=== PATIENT | male | born 1950 | race Caucasian/White ===

== ENCOUNTER 2017-04-03 08:50 | Inpatient (IN) | payer SELFPAY ==
--- NOTE | 2017-04-03 09:23 | ER Document Report ---
HPI - HPI Patient complains to provider of: hand/wrist pain Onset: Yesterday Onset/Duration: Worse Quality of pain: Sharp Pain Level: 4 Context: Patient complains of right wrist and hand pain that started yesterday. Patient denies any injury. 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 Patient is right- hand dominant. Patient denies any fever. Patient complains of pain with attempt to extend his fingers of his right hand. Patient states he is unable to make a closed fist due to tenderness. Associated Symptoms: Other - Right hand and wrist pain Exacerbated by: Movement Relieved by: Denies Similar symptoms previously: No Recently seen / treated by doctor: No - ROS ROS below otherwise negative: Yes Systems Reviewed and Negative: Yes All other systems reviewed and negative - CONSTITUTIONAL Constitutional: DENIES: Fever - MUSCULOSKELETAL Musculoskeletal: REPORTS: Extremity pain - DERM Skin Color: Erythema Skin Problems: None Past Medical History - General Information source: Patient - Social History Smoking Status: Current Every Day Smoker Frequency of alcohol use: Occasional Drug Abuse: None 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 Denies: Hx Open Heart Surgery, Hx Pacemaker - Immunizations Hx Diphtheria, Pertussis, Tetanus Vaccination: Yes Vertical Provider Document - CONSTITUTIONAL Agree With Documented VS: Yes Exam Limitations: No Limitations General Appearance: WD/WN, No Apparent Distress - INFECTION CONTROL TRAVEL OUTSIDE OF THE [place] IN LAST 30 DAYS: No - HEENT HEENT: Atraumatic, Normocephalic - NECK Neck: Normal Inspection - RESPIRATORY Respiratory: Breath Sounds Normal, No Respiratory Distress O2 Sat by Pulse Oximetry: 97 - CARDIOVASCULAR Cardiovascular: Regular Rate, Regular Rhythm, No Murmur Pulses: Normal: Radial - BACK Back: Normal Inspection - MUSCULOSKELETAL/EXTREMETIES Musculoskeletal/Extremeties: MAEW, Tender - Patient with palmar right hand pain to thenar crease that extends distally to the base of his 2 through 5 digits and proximally to his elbow area. Erythema overlying volar aspect of right wrist Notes: Passive extension of fingers 2 through 5 markedly increases his pain along the flexor tendon sheathes, no overt swelling appreciated - NEURO Level of Consciousness: Awake, Alert, Appropriate Motor/Sensory: negative: No Sensory Deficit Notes: Patient unable to actively extend his fingers, patient unable to fully flex his fingers into a fist - DERM Integumentary: Warm, Dry. negative: Abscess Notes: Patient with erythema to the volar aspect of right wrist Course - Re-evaluation Re-evalutation: 04/03/17 09:[address] Tapia who agrees to come to room for evaluation. 04/03/17 09:[address] morris and discussed patient presentation, recommends obtaining lab work including CBC, sed rate and CRP, also recommends obtaining an MRI of the hand and wrist area and calling him with results. Does not recommend any antibiotics at this time. 04/03/17 13:[address] Morris with results of MRI as well as lab test, Dr. morris will be by to evaluate patient 04/03/17 13:42 Dr Morris to bedside, advises unasyn iv and consulting with hospitalist for admission. 04/03/17 14:[address] Vargas who agrees to accept patient to medical floor - Vital Signs Vital signs: Temp Pulse Resp BP Pulse Ox 97.7 F 87 18 114/80 97 04/03/17 08:51 04/03/17 08:51 04/03/17 08:51 04/03/17 08:51 04/03/17 08:51 - Laboratory Result Diagrams: 04/03/17 10:15 04/03/17 10:15 Laboratory results interpreted by me: 04/03/17 13:33 Labs- Entire Visit 04/03/17 04/03/17 10:15 10:15 WBC 11.7 H RBC 4.80 Hgb 15.7 Hct 44.5 MCV 93 MCH 32.7 MCHC 35.3 RDW 14.1 H Plt Count 196 Seg Neutrophils % 70.8 Lymphocytes % 19.6 Monocytes % 8.4 Eosinophils % 0.5 Basophils % 0.7 Absolute Neutrophils 8.3 H Absolute Lymphocytes 2.3 Absolute Monocytes 1.0 Absolute Eosinophils 0.1 Absolute Basophils 0.1 ESR 19 Sodium 141.6 Potassium 4.3 Chloride 107 Carbon Dioxide 24 Anion Gap 11 BUN 18 Creatinine 1.06 Est GFR ( Amer) > 60 Est GFR (Non-Af Amer) > 60 Glucose 142 H Calcium 9.9 C-Reactive Protein 10.5 H - Diagnostic Test Radiology reviewed: Reports reviewed Discharge - Discharge Clinical Impression: Right common flexor tendon sheath inflam, Right wrist cellulitis Condition: Stable Disposition: ADMITTED INPATIENT Admitting Provider: Hospitalist Unit Admitted: Medical Floor Referrals: DOROTHEA LEMUS MD [Primary Care Provider] - Follow up as needed
[2017-04-03] MEDS ORDERED: MORPHINE SULFATE 10 MG/ML INJ IV ONE ×2 (09:33→14:41)
[2017-04-03 10:34] LABS: ABSOLUTE BASOPHILS # (AUTO) 0.1 10^3/uL (0.0-0.2); ABSOLUTE EOSINOPHILS # (AUTO) 0.1 10^3/uL (0.0-0.6); ABSOLUTE LYMPHOCYTES (AUTO) 2.3 10^3/uL (0.5-4.7); ABSOLUTE NEUT (AUTO) 8.3 10^3/uL (1.7-8.2); BASOPHILS % (AUTO) 0.7 % (0-2); EOSINOPHILS % (AUTO) 0.5 % (0-6); HEMATOCRIT 44.5 % (37.9-51.0); HEMOGLOBIN 15.7 g/dL (13.5-17.0); HGB HCT DIFFERENCE 2.6; LYMPHOCYTES % (AUTO) 19.6 % (13-45); MEAN CORPUSCULAR HEMOGLOBIN 32.7 pg (27.0-33.4); MEAN CORPUSCULAR HGB CONC 35.3 g/dL (32.0-36.0); MEAN CORPUSCULAR VOLUME 93 fl (80-97); MONOCYTES % (AUTO) 8.4 % (3-13); RED CELL DISTRIBUTION WIDTH 14.1 % (11.5-14.0); SEGMENTED NEUTROPHILS % (AUTO) 70.8 % (42-78); WHITE BLOOD COUNT 11.7 10^3/uL (4.0-10.5)
[2017-04-03 10:58] LABS: ANION GAP 11 (5-19); BLOOD UREA NITROGEN 18 mg/dL (7-20); C-REACTIVE PROTEIN 10.5 mg/L (<10.0); CALCIUM 9.9 mg/dL (8.4-10.2); CARBON DIOXIDE 24 mmol/L (22-30); CHLORIDE 107 mmol/L (98-107); CREATININE RESULT 1.06 mg/dL (0.52-1.25); GLUCOSE 142 mg/dL (75-110); POTASSIUM 4.3 mmol/L (3.6-5.0); SODIUM 141.6 mmol/L (137-145)
[2017-04-03 11:19] LABS: ERYTHROCYTE SEDIMENTATION RATE 19 mm/hr (0-20)
--- NOTE | 2017-04-03 13:27 | RADIOLOGY REPORT (SQ) ---
EXAM DESCRIPTION: MRI RT UPPER EXTREMITY WITHOUT COMPLETED DATE/TIME: 04/03/2017 1:03 pm REASON FOR STUDY: r hand/wrist/forearm pain, reddness to volar wrist COMPARISON: None. TECHNIQUE: Multiplanar imaging of the right forearm, wrist, and majority of hand to include fat and fluid sensitive sequences. LIMITATIONS: Motion. FINDINGS: There is fluid in the flexor tendon sheath of the visualized portion of the 5th digit. At the level of the metacarpals and more proximal there is fluid in the common flexor tendon sheath ext ending to the level of the distal forearm. Regional marrow signal is normal. IMPRESSION: Inflammation in the common flexor tendon sheath extending into the 5th digit consistent with inflammatory or infectious process. No evidence of osteomyelitis. TECHNICAL DOCUMENTATION: JOB ID: [id number] [employer]- All Rights Reserved
[2017-04-03] MEDS ORDERED: AMPICILLIN SOD/SULBACTAM 3 GM VIAL IV ONE (13:41)
[2017-04-03] MEDS ORDERED: ACETAMINOPHEN 325 MG TABLET PO PRN (14:42)
[2017-04-03] MEDS ORDERED: ONDANSETRON 4 MG TAB.RAPDIS PO PRN (14:42)
[2017-04-03] MEDS ORDERED: INSULIN LISPRO 100 UNIT/ML 3 ML VIAL SUBCUT PRN (14:48)
[2017-04-03] MEDS ORDERED: DEXTROSE 50%-WATER 25 GM/50 ML DISP.SYRIN IV PRN ×2 (14:48)
[2017-04-03] MEDS ORDERED: GLUCAGON,HUMAN RECOMB 1 MG INJ IM PRN (14:48)
[2017-04-03] MEDS ORDERED: DEXTROSE 40% GEL 15 GM TUBE PO PRN ×2 (14:48)
[2017-04-03] MEDS ORDERED: ALPRAZOLAM 0.25 MG TABLET PO PRN ×2 (14:49→19:46)
--- NOTE | 2017-04-03 14:58 | PDOC H&P ---
History of Present Illness Admission Date/PCP: 04/03/17 14:40 DOROTHEA LEMUS, Patient complains of: Pain in the right wrist. History of Present Illness: ASHISH SHRESTHA is a 66 year old male with a history of diabetes well controlled with metformin who presents with 1 day history of right wrist pain and swelling. The patient has noticed swelling over the palmar aspect of his right wrist. There is some mild tenderness when he tries to flex his wrist. The patient denies any fevers or chills however. He denies any recent trauma. He denies any tick exposure. He does not work in garden and denies having any fevers or chills. The patient had an MRI and evaluation of this in the emergency room shows some inflammation in the common tendon sheath. The patient however has already been examined by orthopedic surgery and they did not feel that he has a tendon sheath infection. The patient denies any animal bites. Denies any travel outside of [facility]. He is admitted for treatment of cellulitis. Past Medical History Cardiac Medical History: Reports: Atrial Fibrillation, Hypertension - LISINOPRIL , AMLODIPINE Denies: Myocardial Infarction Pulmonary Medical History: Denies: Asthma Neurological Medical History: Reports: None Endocrine Medical History: Reports: Diabetes Mellitus Type 2 Renal/ Medical History: Reports: None Malignancy Medical History: Reports: None GI Medical History: Reports: None Denies: Hepatitis, Hiatal Hernia Musculoskeltal Medical History: Reports: None Skin Medical History: Reports: Other - Chronic rash on his legs. Psychiatric Medical History: Denies: Depression Hematology: Denies: Anemia, Sickle Cell Disease Infectious Medical History: Reports: None Past Surgical History Past Surgical History: Reports: Orthopedic Surgery Denies: Pacemaker Social History Information Source: Patient Lives with: Spouse/Significant other Smoking Status: Current Every Day Smoker Frequency of Alcohol Use: None Hx Recreational Drug Use: No Hx Prescription Drug Abuse: No - Advance Directive Resuscitation Status: Full Code Family History Family History: CAD Family History: Mother has pancreatic cancer and still alive. Parental Family History Reviewed: Yes Children Family History Reviewed: No Sibling(s) Family History Reviewed.: No Medication/Allergy Home Medications: Albuterol Sulfate [Proair HFA] 1 - 2 puff IH Q4 PRN 08/23/14 Alprazolam [Xanax 0.25 mg Tablet] 0.25 mg PO Q6HP PRN 08/23/14 Aspirin [Aspirin 325 mg Tablet] 325 mg PO DAILY 08/23/14 Atenolol [Tenormin 100 mg Tablet] 100 mg PO DAILY #7 tablet 08/23/14 Atenolol [Tenormin 50 mg Tablet] 50 mg PO DAILY 08/23/14 Lisinopril 10 mg PO DAILY 08/23/14 Metformin HCl [Glumetza ER 500 mg Tablet] 500 mg PO QHS 08/23/14 Oxycodone HCl 5 mg PO PRN PRN 08/23/14 Allergies/Adverse Reactions: No Known Allergies Allergy (Verified 04/03/17 09:05) Review of Systems Constitutional: ABSENT: chills, fever(s), headache(s), weight gain, weight loss Eyes: ABSENT: visual disturbances Ears: ABSENT: hearing changes Cardiovascular: ABSENT: chest pain, dyspnea on exertion, edema, orthropnea, palpitations Respiratory: ABSENT: cough, hemoptysis Gastrointestinal: ABSENT: abdominal pain, constipation, diarrhea, hematemesis, hematochezia, nausea, vomiting Genitourinary: ABSENT: dysuria, hematuria Musculoskeletal: ABSENT: joint swelling Integumentary: PRESENT: as per HPI Neurological: ABSENT: abnormal gait, abnormal speech, confusion, dizziness, focal weakness, syncope Psychiatric: ABSENT: anxiety, depression, homidical ideation, suicidal ideation Endocrine: ABSENT: cold intolerance, heat intolerance, polydipsia, polyuria Hematologic/Lymphatic: ABSENT: easy bleeding, easy bruising Physical Exam Vital Signs: Temp Pulse Resp BP Pulse Ox 97.7 F 87 18 114/80 97 04/03/17 08:51 04/03/17 08:51 04/03/17 08:51 04/03/17 08:51 04/03/17 14:18 General appearance: PRESENT: no acute distress, well-developed, well-nourished Head exam: PRESENT: atraumatic, normocephalic Eye exam: PRESENT: conjunctiva pink, EOMI, PERRLA. ABSENT: scleral icterus Ear exam: PRESENT: normal external ear exam Mouth exam: PRESENT: moist, tongue midline Neck exam: ABSENT: carotid bruit, JVD, lymphadenopathy, thyromegaly Respiratory exam: PRESENT: clear to auscultation stef. ABSENT: rales, rhonchi, wheezes Cardiovascular exam: PRESENT: RRR. ABSENT: diastolic murmur, rubs, systolic murmur Pulses: PRESENT: normal dorsalis pedis pul Vascular exam: PRESENT: normal capillary refill GI/Abdominal exam: PRESENT: normal bowel sounds, soft. ABSENT: distended, guarding, mass, organolmegaly, rebound, tenderness Rectal exam: PRESENT: deferred Extremities exam: PRESENT: other - Pain with flexion of the right wrist.. ABSENT: calf tenderness, clubbing, pedal edema Neurological exam: PRESENT: alert, awake, oriented to person, oriented to place , oriented to time, oriented to situation, CN II-XII grossly intact. ABSENT: motor sensory deficit Psychiatric exam: PRESENT: appropriate affect Skin exam: PRESENT: dry, erythema - Erythematous rash on the palmar side of the right wrist. Patient is able to flex his fingers without pain., intact, warm. ABSENT: cyanosis, rash Results Impressions: Upper Extremity MRI 04/03/17 09:31 IMPRESSION: Inflammation in the common flexor tendon sheath extending into the 5th digit consistent with inflammatory or infectious process. No evidence of osteomyelitis. Assessment & Plan - Diagnosis (1) Cellulitis Is this a current diagnosis for this admission?: Yes Plan: Patient has cellulitis of the right wrist. Patient has been given Unasyn in the emergency room and we will continue with that. He has been evaluated by orthopedic surgery already and does not appear to have an active infection of the tendon sheath. Blood cultures have been obtained. (2) Hypertension Is this a current diagnosis for this admission?: Yes Plan: We will continue with the atenolol. (3) Diabetes mellitus Is this a current diagnosis for this admission?: Yes Plan: The patient is on metformin as an outpatient. We will hold that and cover with sliding scale insulin. (4) Atrial fibrillation Is this a current diagnosis for this admission?: Yes Plan: Continue with atenolol. Patient is in a normal rhythm today. He is not on anticoagulation. (5) Anxiety Is this a current diagnosis for this admission?: Yes Plan: Patient is on Celexa and Xanax for this. - Time Time Spent: 50 to 70 Minutes - Plan Summary Plan Summary: We will admit as an observation. I anticipate this require less than a 2 midnight hospital stay.
[2017-04-03] MEDS: OXYCODONE-ACETAMINOPHEN 5-325 MG TABLET PO PRN (19:17)
[2017-04-03] MEDS ORDERED: KETOROLAC TROMETHAMINE INJ/PF 30 MG/1 ML SDV IV PRN (19:47)
[2017-04-03] MEDS: ATORVASTATIN CALCIUM 10 MG TABLET PO SCH (21:11)
[2017-04-03] MEDS: METFORMIN HCL 500 MG TABLET PO SCH (21:11)
[2017-04-03] MEDS: AMPICILLIN SODIUM/SULBACTAM NA 3 GM in NORMAL SALINE 100 ML IV SCH (21:11)
[2017-04-04] MEDS: AMPICILLIN SODIUM/SULBACTAM NA 3 GM in NORMAL SALINE 100 ML IV SCH ×4 (02:18→20:12)
[2017-04-04] MEDS: OXYCODONE-ACETAMINOPHEN 5-325 MG TABLET PO PRN ×2 (02:18→08:21)
[2017-04-04 04:44] LABS: HEMATOCRIT 40.9 % (37.9-51.0); HEMOGLOBIN 14.2 g/dL (13.5-17.0); HGB HCT DIFFERENCE 1.7; MEAN CORPUSCULAR HEMOGLOBIN 32.7 pg (27.0-33.4); MEAN CORPUSCULAR HGB CONC 34.7 g/dL (32.0-36.0); MEAN CORPUSCULAR VOLUME 94 fl (80-97); RED BLOOD COUNT 4.34 10^6/uL (4.35-5.55); RED CELL DISTRIBUTION WIDTH 13.8 % (11.5-14.0); WHITE BLOOD COUNT 8.1 10^3/uL (4.0-10.5)
[2017-04-04 05:09] LABS: ANION GAP 8 (5-19); BLOOD UREA NITROGEN 19 mg/dL (7-20); CALCIUM 8.8 mg/dL (8.4-10.2); CARBON DIOXIDE 26 mmol/L (22-30); CHLORIDE 106 mmol/L (98-107); CREATININE RESULT 0.99 mg/dL (0.52-1.25); GLUCOSE 121 mg/dL (75-110); POTASSIUM 4.3 mmol/L (3.6-5.0)
[2017-04-04] MEDS ORDERED: IBUPROFEN 800 MG TABLET PO ONE (09:30)
[2017-04-04] MEDS: CITALOPRAM HYDROBROMIDE 20 MG TABLET PO SCH (09:42)
[2017-04-04] MEDS: ASPIRIN 325 MG TABLET, ENT COATED PO SCH (09:43)
[2017-04-04] MEDS: LISINOPRIL 10 MG TABLET PO SCH (09:43)
[2017-04-04] MEDS: ATENOLOL 50 MG TABLET PO SCH (09:45)
[2017-04-04] MEDS ORDERED: ASPIRIN 325 MG TABLET PO SCH (10:00)
--- NOTE | 2017-04-04 10:17 | PDOC PROGRESS REPORT ---
Subjective Progress Note for:: 04/04/17 Subjective:: Reports the right wrist pain is less today. Physical Exam Vital Signs: Temp Pulse Resp BP Pulse Ox 97.3 F 78 18 116/76 99 04/04/17 07:07 04/04/17 07:07 04/04/17 07:07 04/04/17 07:07 04/04/17 07:07 Intake & Output 04/03/17 04/04/17 04/05/17 06:59 06:59 06:59 Intake Total 670 Balance 670 Weight 100.8 kg General appearance: PRESENT: no acute distress Eye exam: PRESENT: conjunctiva pink. ABSENT: scleral icterus Mouth exam: PRESENT: moist, tongue midline Neck exam: ABSENT: JVD Respiratory exam: PRESENT: clear to auscultation stef. ABSENT: rales, rhonchi, wheezes Cardiovascular exam: PRESENT: RRR. ABSENT: diastolic murmur, rubs, systolic murmur GI/Abdominal exam: PRESENT: normal bowel sounds, soft. ABSENT: distended, guarding, mass, organolmegaly, rebound, tenderness Extremities exam: ABSENT: calf tenderness, clubbing, pedal edema Neurological exam: PRESENT: alert, awake, oriented to person, oriented to place , oriented to time, oriented to situation, CN II-XII grossly intact. ABSENT: motor sensory deficit Psychiatric exam: PRESENT: appropriate affect Skin exam: PRESENT: other - Erythema of the right wrist on the palmar aspect is improved. Patient has more movement of his finger flexion today. Results Laboratory Results: 04/04/17 04:10 04/04/17 04:10 04/04/17 04/04/17 04:10 04:10 WBC 8.1 RBC 4.34 L Hgb 14.2 Hct 40.9 MCV 94 MCH 32.7 MCHC 34.7 RDW 13.8 Plt Count 162 Sodium 140.0 Potassium 4.3 Chloride 106 Carbon Dioxide 26 Anion Gap 8 BUN 19 Creatinine 0.99 Est GFR ( Amer) > 60 Est GFR (Non-Af Amer) > 60 Glucose 121 H Calcium 8.8 Impressions: Upper Extremity MRI 04/03/17 09:31 IMPRESSION: Inflammation in the common flexor tendon sheath extending into the 5th digit consistent with inflammatory or infectious process. No evidence of osteomyelitis. Assessment & Plan - Diagnosis (1) Cellulitis Is this a current diagnosis for this admission?: Yes Plan: Patient has cellulitis of the right wrist. He has shown improvement. Needs 1 more day of IV antibiotics prior to discharge to home. He has been evaluated by orthopedic surgery already and does not appear to have an active infection of the tendon sheath. Blood cultures have been obtained. (2) Hypertension Is this a current diagnosis for this admission?: Yes Plan: We will continue with the atenolol. (3) Diabetes mellitus Is this a current diagnosis for this admission?: Yes Plan: The patient is on metformin as an outpatient. We will hold that and cover with sliding scale insulin. (4) Atrial fibrillation Is this a current diagnosis for this admission?: Yes Plan: Continue with atenolol. Patient is in a normal rhythm today. He is not on anticoagulation. (5) Anxiety Is this a current diagnosis for this admission?: Yes Plan: Patient is on Celexa and Xanax for this. - Time Time Spent with patient: 25-34 minutes - Inpatient Certification Medical Necessity: Need Close Monitoring Due to Risk of Patient Decompensation, Need for IV Antibiotics
[2017-04-04] MEDS: IBUPROFEN 800 MG TABLET PO SCH ×2 (12:22→17:35)
[2017-04-04] MEDS ORDERED: INFLUENZA ADLT QUAD (36MOS+) 2017-18 VAC 0.5 ML SYR IM PRN (16:27)
--- NOTE | 2017-04-04 19:32 | PDOC CONSULTATION ---
Consultation Consult Date: 04/03/17 Consult reason:: Rule out flexor tenosynovitis of the right hand. History of Present Illness Admission Date/PCP: 04/04/17 10:14 DOROTHEA LEMUS, Patient complains of: Right hand redness, swelling, pain with motion of the digits History of Present Illness: 66-year-old diabetic smoker with 48 hour history of erythema of the volar aspect of the wrist of his right hand with significant pain with extension and flexion of all 5 digits especially the ring finger. Denies any numbness or tingling or paresthesias. Denies any abrasions or cuts except for small abrasion of the digit. Denies any previous injuries or any previous infections. Denies any fevers or chills. Denies nausea vomiting. Past Medical History Cardiac Medical History: Reports: Atrial Fibrillation, Hypertension - LISINOPRIL , AMLODIPINE Denies: Myocardial Infarction Pulmonary Medical History: Denies: Asthma Neurological Medical History: Reports: None Denies: Seizures Endocrine Medical History: Reports: Diabetes Mellitus Type 2 Renal/ Medical History: Reports: None Malignancy Medical History: Reports: None GI Medical History: Reports: None Denies: Hepatitis, Hiatal Hernia Musculoskeltal Medical History: Reports: None Skin Medical History: Reports: Other - Chronic rash on his legs. Psychiatric Medical History: Denies: Depression Hematology: Denies: Anemia, Sickle Cell Disease Infectious Medical History: Reports: None Past Surgical History Past Surgical History: Reports: Orthopedic Surgery Denies: Pacemaker Social History Lives with: Spouse/Significant other Smoking Status: Current Every Day Smoker Cigarettes Packs Per Day: 0.5 Cigars Per Day: 0 Pipes Per Day: 0 Number of Years Smokin Last Time Smoked: 04/03/2017 Frequency of Alcohol Use: Social Hx Recreational Drug Use: No Drugs: None Hx Prescription Drug Abuse: No - Advance Directive Resuscitation Status: Full Code Family History Family History: CAD Parental Family History Reviewed: No Children Family History Reviewed: No Sibling(s) Family History Reviewed.: No Medication/Allergy Home Medications: Albuterol Sulfate [Proair HFA] 1 - 2 puff IH Q4 PRN 04/03/17 Alprazolam [Xanax 0.25 mg Tablet] 0.25 mg PO Q8 04/03/17 Aspirin [Ecotrin 325 mg EC Tablet] 325 mg PO DAILY 04/03/17 Atenolol [Tenormin 100 mg Tablet] 100 mg PO DAILY 04/03/17 Citalopram Hydrobromide [Celexa 40 mg Tablet] 40 mg PO DAILY 04/03/17 Lisinopril [Prinivil 10 mg Tablet] 10 mg PO DAILY 04/03/17 Lovastatin [Altoprev] 20 mg PO DAILY 04/03/17 Metformin HCl [Metformin HCl ER] 1 tab PO QHS 04/03/17 Naproxen Sodium [Aleve] 220 mg PO PRN PRN 04/03/17 Allergies/Adverse Reactions: No Known Allergies Allergy (Verified 04/03/17 09:05) Review of Systems All systems: reviewed and no additional remarkable complaints except as stated Constitutional: PRESENT: as per HPI Eyes: ABSENT: visual disturbances Ears: ABSENT: hearing changes Nose, Mouth, and Throat: ABSENT: headache(s), mouth pain, sore throat Cardiovascular: ABSENT: chest pain, orthropnea, palpitations Respiratory: ABSENT: dyspnea, hemoptysis Gastrointestinal: ABSENT: nausea, vomiting Genitourinary: ABSENT: dysuria, hematuria Musculoskeletal: PRESENT: as per HPI Integumentary: PRESENT: as per HPI, erythema Neurological: ABSENT: numbness, paresthesias, weakness Psychiatric: ABSENT: anxiety, depression Endocrine: ABSENT: cold intolerance, heat intolerance Hematologic/Lymphatic: ABSENT: easy bruising, lymphadenopathy Physical Exam Vital Signs: Temp Pulse Resp BP Pulse Ox 36.3 C 62 18 143/84 H 100 04/04/17 15:15 04/04/17 15:15 04/04/17 15:15 04/04/17 15:15 04/04/17 15:15 Intake & Output 04/03/17 04/04/17 04/05/17 06:59 06:59 06:59 Intake Total 320 Balance 320 General appearance: PRESENT: no acute distress Head exam: PRESENT: atraumatic Eye exam: PRESENT: EOMI, other - symmetric pupils. ABSENT: nystagmus Ear exam: PRESENT: normal external ear exam. ABSENT: bleeding Mouth exam: PRESENT: dry mucosa, neck supple Neck exam: ABSENT: lymphadenopathy, tenderness, thyromegaly Respiratory exam: PRESENT: accessory muscle use, symmetrical, unlabored. ABSENT : tachypnea Cardiovascular exam: PRESENT: RRR Pulses: PRESENT: normal radial pulses Vascular exam: PRESENT: normal capillary refill Front of Hands Image: 1 - About a 2 cm round erythema at the wrist and proximal forearm. There is no swelling or erythema of the digits. Patient can extend and flex digits but with significant pain with extreme flexion in the ring finger worse than the other 4 digits excluding thumb. All digits have no swelling with good capillary refill and good sensation to light touch. Neurological exam: PRESENT: alert, awake, oriented to person, oriented to place , oriented to time, oriented to situation Psychiatric exam: PRESENT: appropriate affect, normal mood. ABSENT: agitated, anxious Skin exam: PRESENT: erythema - On the volar aspect of the wrist. No erythema or swelling of the digits of the right hand. Results Impressions: Upper Extremity MRI 04/03/17 09:31 IMPRESSION: Inflammation in the common flexor tendon sheath extending into the 5th digit consistent with inflammatory or infectious process. No evidence of osteomyelitis. Status: Image reviewed by me Assessment & Plan - Diagnosis (1) Cellulitis Qualifiers: Site of cellulitis: extremity Site of cellulitis of extremity: upper extremity Laterality: right Qualified Code(s): L03.113 - Cellulitis of right upper limb Is this a current diagnosis for this admission?: Yes Plan: 66-year-old diabetic smoker with I believe erythema and cellulitis involving the flexor sheath. MRI of the extremity shows no pus or fluid that requires decompression in the right wrist and fingers. I believe the patient would be better off receiving 48 hours of IV antibiotics. I will reassess the patient and if patient does not improve would consider doing release of the flexor sheath of his right palm. With a borderline sed rate and CRP I believe the patient will respond with IV antibiotics.
--- NOTE | 2017-04-04 19:35 | PDOC PROGRESS REPORT ---
Subjective Progress Note for:: 04/04/17 Subjective:: Shunt able to flex and extend digits significantly better with improvement in pain. Patient states that erythema has also resolved. She is overnight. Physical Exam Vital Signs: Temp Pulse Resp BP Pulse Ox 36.3 C 62 18 143/84 H 100 04/04/17 15:15 04/04/17 15:15 04/04/17 15:15 04/04/17 15:15 04/04/17 15:15 Intake & Output 04/03/17 04/04/17 04/05/17 06:59 06:59 06:59 Intake Total 320 Balance 320 Front of Hands Image: 1 - Erythema on the volar aspect of the forearm and wrist has resolved. Tenderness has improved significantly. Able to almost close a fist which she cannot do yesterday. He is neurovascular intact distally. Results Impressions: Upper Extremity MRI 04/03/17 09:31 IMPRESSION: Inflammation in the common flexor tendon sheath extending into the 5th digit consistent with inflammatory or infectious process. No evidence of osteomyelitis. Status: Image reviewed by me Assessment & Plan - Diagnosis (1) Cellulitis Qualifiers: Site of cellulitis: extremity Site of cellulitis of extremity: upper extremity Laterality: right Qualified Code(s): L03.113 - Cellulitis of right upper limb Is this a current diagnosis for this admission?: Yes - Plan Summary Plan Summary: 66-year-old gentleman who has significantly improved with IV antibiotics. I agree with the hospitalist that the patient can probably be discharged in the morning on p.o. antibiotics. Surgical intervention required. Patient to follow-up if symptoms return or worsen again.
[2017-04-04] MEDS: METFORMIN HCL 500 MG TABLET PO SCH (22:44)
[2017-04-04] MEDS: ATORVASTATIN CALCIUM 10 MG TABLET PO SCH (22:44)
[2017-04-05] MEDS: AMPICILLIN SODIUM/SULBACTAM NA 3 GM in NORMAL SALINE 100 ML IV SCH ×2 (03:28→08:34)
[2017-04-05 05:30] LABS: ABSOLUTE BASOPHILS # (AUTO) 0.1 10^3/uL (0.0-0.2); ABSOLUTE EOSINOPHILS # (AUTO) 0.2 10^3/uL (0.0-0.6); ABSOLUTE LYMPHOCYTES (AUTO) 2.3 10^3/uL (0.5-4.7); ABSOLUTE MONOCYTES (AUTO) 0.8 10^3/uL (0.1-1.4); ABSOLUTE NEUT (AUTO) 3.6 10^3/uL (1.7-8.2); EOSINOPHILS % (AUTO) 2.2 % (0-6); HEMATOCRIT 40.8 % (37.9-51.0); HEMOGLOBIN 14.1 g/dL (13.5-17.0); HGB HCT DIFFERENCE 1.5; MEAN CORPUSCULAR HEMOGLOBIN 32.8 pg (27.0-33.4); MEAN CORPUSCULAR HGB CONC 34.6 g/dL (32.0-36.0); MEAN CORPUSCULAR VOLUME 95 fl (80-97); MONOCYTES % (AUTO) 11.1 % (3-13); RED BLOOD COUNT 4.31 10^6/uL (4.35-5.55); RED CELL DISTRIBUTION WIDTH 14.1 % (11.5-14.0); SEGMENTED NEUTROPHILS % (AUTO) 52.7 % (42-78); WHITE BLOOD COUNT 6.9 10^3/uL (4.0-10.5)
[2017-04-05] MEDS: IBUPROFEN 800 MG TABLET PO SCH (08:29)
[2017-04-05 09:41] VITALS: BP 139/84
[2017-04-05] MEDS: LISINOPRIL 10 MG TABLET PO SCH (09:57)
[2017-04-05] MEDS: ASPIRIN 325 MG TABLET, ENT COATED PO SCH (09:58)
[2017-04-05] MEDS: ATENOLOL 50 MG TABLET PO SCH (09:58)
[2017-04-05] MEDS: CITALOPRAM HYDROBROMIDE 20 MG TABLET PO SCH (09:59)
--- NOTE | 2017-04-05 12:51 | PDOC DISCHARGE SUMMARY ---
General - Admit/Disc Date/PCP Admission Date/Primary Care Provider: 04/04/17 10:14 DOROTHEA LEMUS, Discharge Date: 04/05/17 - Discharge Diagnosis (1) Cellulitis Is this a current diagnosis for this admission?: Yes Summary: Negative cultures. Being sent home on Augmentin. (2) Hypertension Is this a current diagnosis for this admission?: Yes (3) Diabetes mellitus Is this a current diagnosis for this admission?: Yes (4) Atrial fibrillation Is this a current diagnosis for this admission?: Yes (5) Anxiety Is this a current diagnosis for this admission?: Yes - Additional Information Resuscitation Status: Full Code Discharge Diet: Diabetic Discharge Activity: Activity As Tolerated Home Medications: Albuterol Sulfate [Proair HFA] 1 - 2 puff IH Q4 PRN 04/03/17 Alprazolam [Xanax 0.25 mg Tablet] 0.25 mg PO Q8 04/03/17 Aspirin [Ecotrin 325 mg EC Tablet] 325 mg PO DAILY 04/03/17 Atenolol [Tenormin 100 mg Tablet] 100 mg PO DAILY 04/03/17 Citalopram Hydrobromide [Celexa 40 mg Tablet] 40 mg PO DAILY 04/03/17 Lisinopril [Prinivil 10 mg Tablet] 10 mg PO DAILY 04/03/17 Lovastatin [Altoprev] 20 mg PO DAILY 04/03/17 Metformin HCl [Metformin HCl ER] 1 tab PO QHS 04/03/17 Naproxen Sodium [Aleve] 220 mg PO PRN PRN 04/03/17 Amox Tr/Potassium Clavulanate [Augmentin 875-125 mg Tablet] 1 tab PO BID #16 tablet 04/05/17 Flu Vacc [id number] 36Mos Up/Pf [Fluzone Adlt Quad 1191-8294 Vac 0.5 ml Syr] 0.5 ml IM .DISCHARGE PRN disp.syrin 04/05/17 History of Present Illness History of Present Illness: ASHISH SHRESTHA is a 66 year old male with a history of diabetes well controlled with metformin who presents with 1 day history of right wrist pain and swelling. The patient has noticed swelling over the palmar aspect of his right wrist. There is some mild tenderness when he tries to flex his wrist. The patient denies any fevers or chills however. He denies any recent trauma. He denies any tick exposure. He does not work in garden and denies having any fevers or chills. The patient had an MRI and evaluation of this in the emergency room shows some inflammation in the common tendon sheath. The patient however has already been examined by orthopedic surgery and they did not feel that he has a tendon sheath infection. The patient denies any animal bites. Denies any travel outside of [facility]. He is admitted for treatment of cellulitis. Hospital Course Hospital Course: 66-year-old gentleman with history of diabetes who presented with swelling and redness on his right wrist. The patient was admitted for IV antibiotics because of the possibility of this involving the flexor tendon sheath. The patient was evaluated by orthopedic surgery and they felt there was no acute involvement of the flexor tendon sheath. He was started empirically on Unasyn and quickly improved. All of his cultures have been negative so far. He will be sent home on a course of Augmentin. While hospitalized he was evaluated by orthopedic surgery. His other medical problems including diabetes and high blood pressure were stable during this hospitalization. Physical Exam Vital Signs: Temp Pulse Resp BP Pulse Ox 97.7 F 60 18 139/84 H 100 04/05/17 09:37 04/05/17 09:37 04/05/17 09:37 04/05/17 09:37 04/05/17 09:37 Intake & Output 04/04/17 04/05/17 04/06/17 06:59 06:59 06:59 Intake Total 1080 Output Total 1 Balance 1079 Weight 102 kg General appearance: PRESENT: no acute distress Eye exam: PRESENT: conjunctiva pink. ABSENT: scleral icterus Mouth exam: PRESENT: moist, tongue midline Neck exam: ABSENT: JVD Respiratory exam: PRESENT: clear to auscultation stef. ABSENT: rales, rhonchi, wheezes Cardiovascular exam: PRESENT: RRR. ABSENT: diastolic murmur, rubs, systolic murmur GI/Abdominal exam: PRESENT: normal bowel sounds, soft. ABSENT: distended, guarding, mass, organolmegaly, rebound, tenderness Extremities exam: PRESENT: full ROM. ABSENT: calf tenderness, clubbing, pedal edema Neurological exam: PRESENT: alert, awake, oriented to person, oriented to place , oriented to time, oriented to situation, CN II-XII grossly intact. ABSENT: motor sensory deficit Psychiatric exam: PRESENT: appropriate affect Skin exam: PRESENT: dry, intact, warm. ABSENT: cyanosis, rash Results Laboratory Results: 04/05/17 04:30 04/05/17 04:30 WBC 6.9 RBC 4.31 L Hgb 14.1 Hct 40.8 MCV 95 MCH 32.8 MCHC 34.6 RDW 14.1 H Plt Count 140 L Seg Neutrophils % 52.7 Lymphocytes % 33.0 Monocytes % 11.1 Eosinophils % 2.2 Basophils % 1.0 Absolute Neutrophils 3.6 Absolute Lymphocytes 2.3 Absolute Monocytes 0.8 Absolute Eosinophils 0.2 Absolute Basophils 0.1 Impressions: Upper Extremity MRI 04/03/17 09:31 IMPRESSION: Inflammation in the common flexor tendon sheath extending into the 5th digit consistent with inflammatory or infectious process. No evidence of osteomyelitis. Qualifiers PATEINT BEING DISCHARGED WITH ANY OF THE FOLLOWING DIAGNOSIS?: No Plan Discharge Plan: Patient is discharged home in stable condition. Will follow up with primary care in 2 weeks Time Spent: Less than 30 Minutes
== END 2017-04-05 10:00 | disposition home or self-care (01) | DRG 603 ==
LOC: ER 08:50 → EH 14:40 → INTOOBSV 14:40 → 4N 16:59 → OBSVTOIN 04-04 10:14
PROVIDERS: ADMIT Internal Medicine; ATTEND Internal Medicine
PROC: 3E0234Z Introduction of Serum, Toxoid and Vaccine into Muscle, Percutaneous Approach (ICD-10-PCS; principal; 2017-04-05)
DX: L03.113 Cellulitis of right upper limb (principal); E11.9 Type 2 diabetes mellitus without complications; I48.91 Unspecified atrial fibrillation; F17.210 Nicotine dependence, cigarettes, uncomplicated; I10 Essential (primary) hypertension; R21 Rash and other nonspecific skin eruption; F41.9 Anxiety disorder, unspecified; Z79.84 Long term (current) use of oral hypoglycemic drugs; Z79.899 Other long term (current) drug therapy; Z23 Encounter for immunization; Z82.49 Family history of ischemic heart disease and other diseases of the circulatory system
CPT/HCPCS: 36415; 80048; 82962; 85025; 85027; 85652; 86140; 87040; 90686; 96374; 96375; 99285; G0378; J0295; J2270; J3490

== ENCOUNTER → 2017-11-16 | Outpatient (CLI) | payer MEDICARE ==
[2017-11-16 11:08] LABS: ABSOLUTE EOSINOPHILS # (AUTO) 0.1 10^3/uL (0.0-0.6); ABSOLUTE LYMPHOCYTES (AUTO) 2.6 10^3/uL (0.5-4.7); ABSOLUTE MONOCYTES (AUTO) 0.9 10^3/uL (0.1-1.4); ABSOLUTE NEUT (AUTO) 4.9 10^3/uL (1.7-8.2); BASOPHILS % (AUTO) 0.3 % (0-2); EOSINOPHILS % (AUTO) 1.2 % (0-6); HEMATOCRIT 44.6 % (37.9-51.0); HEMOGLOBIN 15.2 g/dL (13.5-17.0); LYMPHOCYTES % (AUTO) 30.7 % (13-45); MEAN CORPUSCULAR HGB CONC 34.1 g/dL (32.0-36.0); MEAN CORPUSCULAR VOLUME 94 fl (80-97); MONOCYTES % (AUTO) 10.7 % (3-13); PLATELET COUNT 187 10^3/uL (150-450); RED BLOOD COUNT 4.76 10^6/uL (4.35-5.55); RED CELL DISTRIBUTION WIDTH 13.7 % (11.5-14.0); SEGMENTED NEUTROPHILS % (AUTO) 57.1 % (42-78); TOTAL CELLS COUNTED % (AUTO) 100 %; WHITE BLOOD COUNT 8.6 10^3/uL (4.0-10.5)
[2017-11-16 11:26] LABS: ALANINE AMINOTRANSFERASE 43 U/L (21-72); ALBUMIN 4.4 g/dL (3.5-5.0); ALKALINE PHOSPHATASE 90 U/L (38-126); ANION GAP 13 (5-19); ASPARTATE AMINO TRANSFERASE 23 U/L (17-59); BILIRUBIN,DIRECT 0.3 mg/dL (0.0-0.4); BILIRUBIN,TOTAL 0.3 mg/dL (0.2-1.3); BLOOD UREA NITROGEN 17 mg/dL (7-20); CALCIUM 9.7 mg/dL (8.4-10.2); CARBON DIOXIDE 28 mmol/L (22-30); CHLORIDE 102 mmol/L (98-107); CHOLESTEROL 121.31 mg/dL (0-200); GLUCOSE 237 mg/dL (75-110); SODIUM 143.4 mmol/L (137-145); TOTAL PROTEIN 7.5 g/dL (6.3-8.2); TRIGLYCERIDES 146 mg/dL (<150)
[2017-11-16 11:37] LABS: DIRECT LDL 66 mg/dL (<100)
== END ==
LOC: OD 10:08
PROVIDERS: ATTEND Internal Medicine
DX: E11.9 Type 2 diabetes mellitus without complications (principal); E78.5 Hyperlipidemia, unspecified; J44.9 Chronic obstructive pulmonary disease, unspecified
CPT/HCPCS: 36415; 80053; 80061; 82043; 83036; 84443; 85025

== ENCOUNTER 2019-07-11 08:15 | Observation (INO) | payer MEDICARE ==
--- NOTE | 2019-07-11 08:34 | RADIOLOGY REPORT (SQ) ---
EXAM DESCRIPTION: CHEST SINGLE VIEW COMPLETED DATE/TIME: 07/11/2019 8:26 am REASON FOR STUDY: facial droop COMPARISON: 08/23/2014. EXAM PARAMETERS: NUMBER OF VIEWS: One view. TECHNIQUE: Single frontal radiographic view of the chest acquired. RADIATION DOSE: NA LIMITATIONS: None. FINDINGS: LUNGS AND PLEURA: Calcified granulomas. No opacities, masses or pneumothorax. No pleural effusion. MEDIASTINUM AND HILAR STRUCTURES: No masses. Contour normal. HEART AND VASCULAR STRUCTURES: Heart normal in size. Normal vasculature. BONES: No acute findings. HARDWARE: None in the chest. OTHER: No other significant finding. IMPRESSION: NO ACUTE RADIOGRAPHIC FINDING IN THE CHEST. TECHNICAL DOCUMENTATION: JOB ID: [id number] [employer]- All Rights Reserved Reading location - IP/workstation name: [email or web address]
--- NOTE | 2019-07-11 08:38 | RADIOLOGY REPORT (SQ) ---
EXAM DESCRIPTION: CT HEAD WITHOUT COMPLETED DATE/TIME: 07/11/2019 8:26 am REASON FOR STUDY: facial droop COMPARISON: None. TECHNIQUE: Axial images acquired through the brain without intravenous contrast. Images reviewed wi th bone, brain and subdural windows. Additional sagittal and coronal reconstructions were generated. Images stored on PACS. All CT scanners at this facility use dose modulation, iterative reconstruction, and/or weight based d osing when appropriate to reduce radiation dose to as low as reasonably achievable (ALARA). [facility]: Dose Right [facility]: CareDose [facility]: Dose Right [facility]: Teradose 4D [facility]: [employer] RADIATION DOSE: mGy. LIMITATIONS: None. FINDINGS: VENTRICLES: Normal size and contour. CEREBRUM: No masses. No hemorrhage. No midline shift. No evidence for acute infarction. Normal gra y/white matter differentiation. No areas of low density in the white matter. CEREBELLUM: No masses. No hemorrhage. No alteration of density. No evidence for acute infarction. EXTRAAXIAL SPACES: No fluid collections. No masses. ORBITS AND GLOBE: No intra- or extraconal masses. Normal contour of globe without masses. CALVARIUM: No fracture. PARANASAL SINUSES: No fluid or mucosal thickening. SOFT TISSUES: No mass or hematoma. OTHER: No other significant finding. IMPRESSION: NORMAL BRAIN CT WITHOUT CONTRAST. EVIDENCE OF ACUTE STROKE: NO. COMMENT: Pertinent positive or negative findings of the imaging study reported as a CRITICAL EXAM t o ER PROVIDER at08:30 on 07/11/2019. Category of Critical Exam: Stroke alert. Quality ID # [id number]: Final reports with documentation of one or more dose reduction techniques (e.g., Au tomated exposure control, adjustment of the mA and/or kV according to patient size, use of iterative reconstruction technique) TECHNICAL DOCUMENTATION: JOB ID: [id number] [employer]- All Rights Reserved Reading location - IP/workstation name: [email or web address]
[2019-07-11 08:53] LABS: INTERNATIONAL RATION (INR) 0.94
[2019-07-11 08:57] LABS: PROTHROMBIN TIME 12.6 SEC (11.4-15.4)
--- NOTE | 2019-07-11 09:04 | ER Document Report ---
ED NIH Stroke Scale - NIH Stroke Scale When completed:: Protocol *: 1. NIH scale should be completed with appropriate accompanying assessment tools. *: 2. The NIH should reflect what the patient is capable of doing and should not be coached by the clinician. 1a. Level of Consciousness: 0=Alert;keenly responsive -: 1=Drowsy -: 2=Obtunded -: 3=Coma/unresponsive or reflex to noxious stimuli. 1a. Responses: 0 1b. Orientation Questions: a. What month is it? -: b. How old are you? -: 0=Answers both questions correctly. -: 1=Answers one question correctly or patient is intubated or has orotracheal trauma. -: 2=Answers neither question correctly. 1b. Responses: 0 1c. Response to commands: a. Open and close eyes? -: b. 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 -: Credit is given despite weakness. Demonstration of task is permitted. Substitute command if hands cannot be used. -: 0=Performs both tasks correctly -: 1=Performs one task correctly -: 2=Performs neither task correctly 1c. Responses: 0 2. Gaze: Establish eye contact and instruct patient to "Follow my finger" -: 0=Normal -: 1=Partial gaze palsy. Gaze is abnormal in one or both eyes, but where forced deviation or total gaze paresis is not present. -: 2=Forced deviation or total gaze paresis. 2. Responses: 0 3. Visual [place]: Sees fingers in all four quadrants. -: 0=No visual loss. -: 1=Partial hemianopsia. -: 2=Complete hemianopsia. -: 3=Bilateral hemianopsia (including Cortical blindness) 3. Responses: 0 4. Facial Movement: Instruct patient to: -: a. Show me your teeth -: b. Raise your eyebrows -: c. Close your eyes -: d. Smile -: 0=Normal symmetrical movement -: 1=Minor paralysis (flattened nasolabial fold, asymmetry on smiling). -: 2=Partial paralysis (total or near total paralysis of lower face). -: 3=Complete paralysis of upper and lower face 4. Responses: 1 5. Motor functions (left arm): Alternate sides and extend each arm with palms down (90 degrees if sitting or 45 degrees for supine). -: 0=No drift;limb holds for full 10 seconds. -: 1=Drift; limb holds but drifts down before full 10 seconds, but does not hit bed. -: 2=Some effort against gravity; limb cannot get to or maintain position. -: 3=No effort against gravity; limb falls. -: 4=No movement. -: UN=Amputation, joint fusion, explain in comments. 5. Responses (left arm): 0 5. Motor Functions (right arm): Alternate sides and extend each arm with palms down (90 degrees if sitting or 45 degrees for supine). -: 0=No drift;limb holds for full 10 seconds. -: 1=Drift; limb holds but drifts down before full 10 seconds, but does not hit bed. -: 2=Some effort against gravity; limb cannot get to or maintain position. -: 3=No effort against gravity; limb falls. -: 4=No movement. -: UN=Amputation, joint fusion, explain in comments. 5. Responses (right arm): 0 6. Motor Functions (left leg): With patient lying supine, alternate sides and extend each leg (30 degrees always while supine). -: 0=No drift, leg holds position for full 5 seconds -: 1=Drift; leg falls before full 5 seconds but does not hit bed. -: 2=Some effort against gravity, leg falls to bed but some effort against gravity. -: 3=No effort against gravity, leg falls to bed immediately. -: 4=No movement. -: UN=Amputation, joint fusion; explain in comments. 6. Responses (left leg): 0 6. Motor Functions (right leg): With patient lying supine, alternate sides and extend each leg (30 degrees always while supine). -: 0=No drift, leg holds position for full 5 seconds -: 1=Drift; leg falls before full 5 seconds but does not hit bed. -: 2=Some effort against gravity, leg falls to bed but some effort against gravity. -: 3=No effort against gravity, leg falls to bed immediately. -: 4=No movement. -: UN=Amputation, joint fusion; explain in comments. 6. Responses (right leg): 0 7. Limb Ataxia: With eyes open instruct patient to: -: a. "Touch your finger to your nose". -: b. "Touch your heel to your hunter" -: 0=Absent -: 1=Present in one limb. -: 2=Present in two limbs. -: UN=Amputation or joint fusion; explain in comments. 7. Responses: 0 8. Sensory: Test sensation using pinprick or noxious stimuli. Test as many body parts as possible. -: 0=Normal;no sensory loss -: 1=Mile to moderate sensory loss (patient feels pin prick but is less sharp on affected side). -: 2=Severe or total sensory loss. 8. Responses: 0 9. Best Language: Instruct patient to: -: a. "Describe what you see in this picture." -: b. "Name the items in this picture." -: c. "Read these sentences." -: 0=No aphasia, normal -: 1=Mild to moderate aphasia. -: 2=Severe aphasia -: 3=Mute, global aphasia, no usable speech or auditory comprehension. 9. Responses: 0 10. Articulation, Dysarthia: Instruct patient to: -: "Read these words" or "Repeat these words" -: 0=Normal -: 1=Mild to moderate; patient may slur some words but can be understood without difficulty. -: 2=Severe; patients speech so slurred as to be unintelligible in the absence of dysphasia. -: UN=Intubated or other physical barrier, explain in comments. 10. Responses: 0 11. Extinction or inattention: 0=No abnormality -: 1= Visual, tactile, auditory, spatial, or personal inattention or extinction to bilateral simulation in one or the sensory modalities. -: 2=Profound swapnil-inattention or swapnil-inattention to more than one modality; does not recognize own hand. 11. Responses: 0 Total Score: 1
[2019-07-11 09:07] LABS: ABSOLUTE BASOPHILS # (AUTO) 0.1 10^3/uL (0.0-0.2); ABSOLUTE EOSINOPHILS # (AUTO) 0.1 10^3/uL (0.0-0.6); ABSOLUTE LYMPHOCYTES (AUTO) 2.6 10^3/uL (0.5-4.7); BASOPHILS % (AUTO) 0.6 % (0-2); EOSINOPHILS % (AUTO) 1.5 % (0-6); HEMATOCRIT 43.4 % (37.9-51.0); HEMOGLOBIN 14.8 g/dL (13.5-17.0); LYMPHOCYTES % (AUTO) 29.3 % (13-45); MEAN CORPUSCULAR HGB CONC 34.1 g/dL (32.0-36.0); MEAN CORPUSCULAR VOLUME 94 fl (80-97); MONOCYTES % (AUTO) 11.1 % (3-13); PLATELET COUNT 100 10^3/uL (150-450); RED BLOOD COUNT 4.63 10^6/uL (4.35-5.55); RED CELL DISTRIBUTION WIDTH 13.5 % (11.5-14.0); SEGMENTED NEUTROPHILS % (AUTO) 57.5 % (42-78); TOTAL CELLS COUNTED % (AUTO) 100 %; WHITE BLOOD COUNT 8.7 10^3/uL (4.0-10.5)
--- NOTE | 2019-07-11 09:09 | ER Document Report ---
ED Neuro Symptoms/Deficit - General Chief Complaint: S/S of Possible Stroke Stated Complaint: LEFT FACIAL NUMBNESS,LEFT ARM TINGLING Primary Care Provider: DOROTHEA LEMUS MD [Primary Care Provider] - Follow up as needed Mode of Arrival: Ambulatory Information source: Patient TRAVEL OUTSIDE OF THE [place] IN LAST 30 DAYS: No - HPI Notes: Patient presents with facial weakness and left hand weakness. Patient states when he went to bed he felt normal. He states he went to bed approximately 1 AM on July 11, 2019. He states when he woke up at approximately 7 AM this morning he felt that his left hand was weak and that his face was weak. He stat es that his daughter came over and told him that he had to go to the hospital. He states his left hand is now feeling better but he still feels that his face is somewhat weak. He states he has had no trouble speaking or swallowing. He has not had any confusion. He denies any vision changes. He states he has had no trouble with his gait. He denies any previous strokes or cardiac pathology. He states he did take an aspirin this morning, 325 mg. Patient symptoms have been constant but improving. Nothing is made them better or worse. There is no radiation of the symptoms. They have been moderate. - Related Data Allergies/Adverse Reactions: No Known Allergies Allergy (Verified 07/11/19 08:17) Past Medical History - General Information source: Patient - Social History Smoking Status: Current Every Day Smoker Frequency of alcohol use: None Drug Abuse: None Family History: CAD Patient has suicidal ideation: No Patient has homicidal ideation: No - Past Medical History Cardiac Medical History: Reports: Hx Atrial Fibrillation, Hx Hypertension - LISINOPRIL, AMLODIPINE Denies: Hx Heart Attack Pulmonary Medical History: Denies: Hx Asthma Neurological Medical History: Denies: Hx Cerebrovascular Accident, Hx Seizures Endocrine Medical History: Reports: Hx Diabetes Mellitus Type 2 Renal/ Medical History: Denies: Hx Peritoneal Dialysis GI Medical History: Denies: Hx Hepatitis, Hx Hiatal Hernia, Hx Ulcer Psychiatric Medical History: Denies: Hx Depression Infectious Medical History: Denies: Hx Hepatitis Past Surgical History: Reports: Hx Orthopedic Surgery. Denies: Hx Open Heart Surgery, Hx Pacemaker - Immunizations Hx Diphtheria, Pertussis, Tetanus Vaccination: Yes Review of Systems - Review of Systems Constitutional: denies: Chills, Fever Cardiovascular: denies: Chest pain, Palpitations Respiratory: denies: Cough, Short of breath Neurological/Psychological: denies: Confusion, Dementia -: Yes All other systems reviewed and negative Physical Exam - Vital signs Vitals: Pulse Ox 98 07/11/19 08:45 Interpretation: Hypertensive - General General appearance: Appears well, Alert - HEENT Head: Normocephalic, Atraumatic Eyes: Normal Pupils: PERRL - Respiratory Respiratory status: No respiratory distress Chest status: Nontender Breath sounds: Normal Chest palpation: Normal - Cardiovascular Rhythm: Regular Heart sounds: Normal auscultation Murmur: No - Abdominal Inspection: Normal Distension: No distension Bowel sounds: Normal Tenderness: Nontender Organomegaly: No organomegaly - Back Back: Normal, Nontender - Extremities General upper extremity: Normal inspection, Nontender, Normal color, Normal ROM, Normal temperature General lower extremity: Normal inspection, Nontender, Normal color, Normal ROM, Normal temperature, Normal weight bearing. 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 No: Involuntary movements, Pronator drift Sensory: Normal - Psychological Associated symptoms: Normal affect, Normal mood - Skin Skin Temperature: Warm Skin Moisture: Dry Skin Color: Normal Course - Re-evaluation Re-evalutation: 07/11/19 10:48 Patient arrived with strokelike symptoms. He woke up with left facial weakness and left hand weakness. On arrival here the left hand was essentially back to normal but he still had some left facial weakness. Stroke scale was a 1. He is obviously outside the window for TPA or intervention. I did discuss this with the neurologist at [facility]. Patient will be admitted here for further TIA evaluation. Patient already took an aspirin this morning. - Vital Signs Vital signs: Temp Pulse Resp BP Pulse Ox 60 14 216/106 H 99 07/11/19 08:51 07/11/19 08:51 07/11/19 08:51 07/11/19 08:51 - Laboratory Result Diagrams: 07/11/19 08:34 07/11/19 08:34 Laboratory results interpreted by me: 07/11/19 07/11/19 07/11/19 08:34 08:34 08:34 Plt Count 100 L Sodium 136.5 L Glucose 209 H POC Glucose 219 H - Diagnostic Test Radiology reviewed: Image reviewed, Reports reviewed - EKG Interpretation by Me EKG shows normal: Sinus rhythm Rate: Normal - 62 Rhythm: NSR [place]/QRS: No: Right axis deviation, Left axis deviation Critical Care Note - Critical Care Note Total time excluding time spent on procedures (mins): 50 Comments: Approximately 50 minutes of critical care time were spent on this patient. This included multiple reassessments. And included multiple discussions with consultants. It included reviewing imaging and laboratory values. Discharge - Discharge Clinical Impression: TIA (transient ischemic attack) Condition: Serious Disposition: ADMITTED INPATIENT Admitting Provider: Mj (Hospitalist) - don day to do admission Unit Admitted: Medical Floor Referrals: DOROTHEA LEMUS MD [Primary Care Provider] - Follow up as needed
[2019-07-11 09:21] LABS: ALBUMIN 4.3 g/dL (3.5-5.0); ALKALINE PHOSPHATASE 78 U/L (38-126); ANION GAP 9 (5-19); ASPARTATE AMINO TRANSFERASE 22 U/L (17-59); BILIRUBIN,DIRECT 0.2 mg/dL (0.0-0.4); BILIRUBIN,TOTAL 0.4 mg/dL (0.2-1.3); BLOOD UREA NITROGEN 16 mg/dL (7-20); CALCIUM 9.4 mg/dL (8.4-10.2); CARBON DIOXIDE 26 mmol/L (22-30); CHLORIDE 102 mmol/L (98-107); GLUCOSE 209 mg/dL (75-110); POTASSIUM 4.4 mmol/L (3.6-5.0); TOTAL PROTEIN 7.6 g/dL (6.3-8.2)
[2019-07-11] MEDS ORDERED: ONDANSETRON HCL INJ/PF 4 MG/2 ML SDV IV PRN (13:31)
[2019-07-11] MEDS ORDERED: ACETAMINOPHEN 325 MG TABLET PO PRN (13:31)
[2019-07-11] MEDS ORDERED: MAGNESIUM HYDROXIDE SUSP 30 ML UDCUP PO PRN (13:31)
[2019-07-11] MEDS ORDERED: OXYCODONE-ACETAMINOPHEN 5-325 MG TABLET PO PRN (13:31)
[2019-07-11] MEDS ORDERED: ONDANSETRON 4 MG TAB.RAPDIS PO PRN (13:31)
[2019-07-11] MEDS ORDERED: DEXTROSE 50%-WATER 25 GM/50 ML DISP.SYRIN IV PRN ×2 (13:38)
[2019-07-11] MEDS ORDERED: GLUCAGON,HUMAN RECOMB 1 MG INJ IM PRN (13:38)
[2019-07-11] MEDS ORDERED: DEXTROSE 40% GEL 15 GM TUBE PO PRN ×2 (13:38)
[2019-07-11] MEDS ORDERED: LORAZEPAM 0.5 MG TABLET PO PRN (13:41)
[2019-07-11] MEDS ORDERED: (PENDING PHARMACY ID) (Citalopram Hydrobromide [Celexa 40 Mg Tablet] 40 MG) PO SCH (13:45)
[2019-07-11] MEDS: HYDRALAZINE HCL INJ/PF 20 MG/1 ML SDV IV PRN ×3 (13:53→21:45)
--- NOTE | 2019-07-11 13:53 | PDOC H&P ---
History of Present Illness Admission Date/PCP: 07/11/19 10:59 DOROTHEA LEMUS MD History of Present Illness: ASHISH SHRSETHA is a 68 year old male states last night he was that he had a "dry cough." Patient states that this was very unusual for him. Woke up this morning he had weakness of his left hand and drooping on the left side of his face. Patient states that both the symptoms are getting better.. She denies ever having a previous CVA or OK. Patient states that he has been taking 1 adult aspirin daily for many years now as directed by his primary care provider. Patient denies any difficulty with his speech patient denies any difficulty swallowing he denies headache he denies any other symptoms on the right side of his body. Patient denies any symptoms with his left lower extremity. Physician discussed this with the neurologist at [facility]. Patient will be admitted for further work-up. Past Medical History Cardiac Medical History: Reports: Atrial Fibrillation, Hypertension - LISINOPRIL, AMLODIPINE Denies: Myocardial Infarction Pulmonary Medical History: Denies: Asthma Neurological Medical History: Denies: Seizures Endocrine Medical History: Reports: Diabetes Mellitus Type 2 GI Medical History: Denies: Hepatitis, Hiatal Hernia Psychiatric Medical History: Denies: Depression Hematology: Denies: Anemia, Sickle Cell Disease Past Surgical History Past Surgical History: Reports: Orthopedic Surgery Denies: Pacemaker Social History Smoking Status: Current Every Day Smoker Frequency of Alcohol Use: Social Hx Recreational Drug Use: No Drugs: None Hx Prescription Drug Abuse: No - Advance Directive Resuscitation Status: Do Not Intubate Family History Family History: CAD Parental Family History Reviewed: No Children Family History Reviewed: No Sibling(s) Family History Reviewed.: No Medication/Allergy Home Medications: Citalopram Hydrobromide [Celexa 40 mg Tablet] 40 mg PO DAILY 04/03/17 Aspirin [Ecotrin 325 mg EC Tablet] 325 mg PO DAILY 07/11/19 Atenolol [Tenormin 50 mg Tablet] 50 mg PO DAILY 07/11/19 Lisinopril [Prinivil 10 mg Tablet] 10 mg PO DAILY 07/11/19 Lorazepam 0.5 mg PO BIDP PRN 07/11/19 Lovastatin [Altoprev] 20 mg PO QHS 07/11/19 Metformin HCl [Metformin HCl ER] 1,000 mg PO BIDBS 07/11/19 Allergies/Adverse Reactions: No Known Allergies Allergy (Verified 07/11/19 08:17) Review of Systems Constitutional: PRESENT: weakness - Left upper extremity and left side of his face. ABSENT: chills, fever(s), headache(s), weight gain, weight loss Respiratory: PRESENT: other - No further cough since last night. ABSENT: cough, hemoptysis Gastrointestinal: ABSENT: abdominal pain, constipation, diarrhea, hematemesis, hematochezia, nausea, vomiting Neurological: PRESENT: weakness - Left inspector weights and measures is 4/5 patient has loss of his nasolabial fold on the left. Annual nerves II through XII are intact Psychiatric: ABSENT: anxiety, depression, homidical ideation, suicidal ideation Physical Exam Vital Signs: Temp Pulse Resp BP Pulse Ox 60 11 L 188/93 H 99 07/11/19 08:51 07/11/19 11:46 07/11/19 11:46 07/11/19 11:46 Intake & Output 07/10/19 07/11/19 07/12/19 06:59 06:59 06:59 Weight 99.5 kg General appearance: PRESENT: no acute distress, other - Talking laughing joking in no distress Respiratory exam: PRESENT: clear to auscultation stef. ABSENT: rales, rhonchi, wheezes Cardiovascular exam: PRESENT: RRR. ABSENT: diastolic murmur, rubs, systolic murmur Neurological exam: PRESENT: alert, awake, oriented to person, oriented to place, oriented to time, oriented to situation, reflexes normal, CN II-XII grossly intact, motor sensory deficit, other - 4/5 intrinsic inspector weights and measures on the left Slight weakness to the left side of the face ,tongue is midline Psychiatric exam: PRESENT: appropriate affect, normal mood. ABSENT: homicidal ideation, suicidal ideation Results Laboratory Results: 07/11/19 08:34 07/11/19 08:34 07/11/19 07/11/19 08:34 08:34 WBC 8.7 RBC 4.63 Hgb 14.8 Hct 43.4 MCV 94 MCH 32.0 MCHC 34.1 RDW 13.5 Plt Count 100 L Seg Neutrophils % 57.5 Sodium 136.5 L Potassium 4.4 Chloride 102 Carbon Dioxide 26 Anion Gap 9 BUN 16 Creatinine 0.82 Est GFR ( Amer) > 60 Glucose 209 H Calcium 9.4 Total Bilirubin 0.4 AST 22 Alkaline Phosphatase 78 Total Protein 7.6 Albumin 4.3 07/11/19 08:34 Troponin I < 0.012 Impressions: Chest X-Ray 07/11/19 08:18 IMPRESSION: NO ACUTE RADIOGRAPHIC FINDING IN THE CHEST. Head CT 07/11/19 08:18 IMPRESSION: NORMAL BRAIN CT WITHOUT CONTRAST. EVIDENCE OF ACUTE STROKE: NO. Assessment and Plan - Diagnosis (1) Tobacco abuse Is this a current diagnosis for this admission?: Yes (2) TIA (transient ischemic attack) Is this a current diagnosis for this admission?: Yes (3) Diabetes mellitus Is this a current diagnosis for this admission?: Yes (4) Hypertension Is this a current diagnosis for this admission?: Yes - Plan Summary Summary: Will admit patient for further studies such as carotid Dopplers MRI of the brain. We will add Plavix to patient's regimen. We will control patient's hypertension try to maintain systolic around 160 and diastolic around 90 - Time Time Spent with patient: 35 or more minutes
[2019-07-11] MEDS ORDERED: ENOXAPARIN SODIUM INJ 40 MG/0.4 ML DISP.SYRIN SUBCUT SCH (14:15)
[2019-07-11] MEDS: LISINOPRIL 10 MG TABLET PO SCH (15:43)
[2019-07-11] MEDS: CITALOPRAM HYDROBROMIDE 20 MG TABLET PO SCH (15:43)
[2019-07-11] MEDS: CLOPIDOGREL BISULFATE 75 MG TABLET PO SCH (15:43)
[2019-07-11] MEDS: INSULIN LISPRO 100 UNIT/ML 3 ML VIAL SUBCUT SCH ×2 (15:49→21:43)
[2019-07-11] MEDS ORDERED: (PENDING PHARMACY ID) (Metformin Hcl [Metformin Hcl Er] 1,000 MG) PO SCH (17:00)
--- NOTE | 2019-07-11 21:43 | RADIOLOGY REPORT (SQ) ---
EXAM DESCRIPTION: RadLex: MR BRAIN WITHOUT IV CONTRAST CLINICAL HISTORY: 68 years Male; cva TECHNIQUE: Routine noncontrast MRI brain protocol COMPARISON: CT 07/11/2019 FINDINGS: There is an area of linear cortical diffusion restriction along the superolateral right precentral gyrus. This extends approximately 1.8 cm and is less than 5 mm thick. There is focal gradient echo hypointensity involving a portion of the infarct, HI 1. No significant mass effect. No additional foci of diffusion restriction. Mild scattered T2 signal changes in the cerebral white matter are nonspecific but typical for mild chronic small vessel disease. Ventricles and cisterns are preserved. Calvarial marrow is normal. Paranasal sinuses and mastoid air cells are clear. Normal flow-voids are seen in the major intracranial arteries. IMPRESSION: 1. 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 Mild chronic ischemic changes
[2019-07-11] MEDS: FAMOTIDINE 20 MG TABLET PO SCH (21:45)
[2019-07-11] MEDS ORDERED: (PENDING PHARMACY ID) (Lovastatin [Altoprev] 20 MG) PO SCH (22:00)
--- NOTE | 2019-07-11 22:41 | EKG REPORT ---
SEVERITY:- BORDERLINE ECG - SINUS RHYTHM PROBABLE LEFT ATRIAL ABNORMALITY LVH : Confirmed by: Misty Mueller 11-Jul-2019 22:41:08
[2019-07-12 06:53] LABS: ANION GAP 11 (5-19); BLOOD UREA NITROGEN 15 mg/dL (7-20); CALCIUM 9.3 mg/dL (8.4-10.2); CARBON DIOXIDE 22 mmol/L (22-30); CHLORIDE 104 mmol/L (98-107); CHOLESTEROL 126.76 mg/dL (0-200); GLUCOSE 135 mg/dL (75-110); POTASSIUM 4.4 mmol/L (3.6-5.0); TRIGLYCERIDES 102 mg/dL (<150)
[2019-07-12 07:04] LABS: DIRECT LDL 74 mg/dL (<100)
[2019-07-12 08:07] LABS: ABSOLUTE LYMPHOCYTES (AUTO) 2.5 10^3/uL (0.5-4.7); ABSOLUTE MONOCYTES (AUTO) 0.9 10^3/uL (0.1-1.4); ABSOLUTE NEUT (AUTO) 5.9 10^3/uL (1.7-8.2); BASOPHILS % (AUTO) 0.5 % (0-2); EOSINOPHILS % (AUTO) 0.5 % (0-6); HEMATOCRIT 43.3 % (37.9-51.0); HEMOGLOBIN 14.8 g/dL (13.5-17.0); LYMPHOCYTES % (AUTO) 26.4 % (13-45); MEAN CORPUSCULAR HGB CONC 34.1 g/dL (32.0-36.0); MEAN CORPUSCULAR VOLUME 94 fl (80-97); MONOCYTES % (AUTO) 9.7 % (3-13); RED BLOOD COUNT 4.61 10^6/uL (4.35-5.55); RED CELL DISTRIBUTION WIDTH 13.6 % (11.5-14.0); SEGMENTED NEUTROPHILS % (AUTO) 62.9 % (42-78); TOTAL CELLS COUNTED % (AUTO) 100 %; WHITE BLOOD COUNT 9.3 10^3/uL (4.0-10.5)
[2019-07-12 08:28] LABS: PLATELET COUNT 183 10^3/uL (150-450)
[2019-07-12] MEDS: INSULIN LISPRO 100 UNIT/ML 3 ML VIAL SUBCUT SCH ×4 (09:34→21:12)
[2019-07-12] MEDS: METFORMIN HCL 500 MG TABLET PO SCH ×2 (09:36→17:29)
[2019-07-12] MEDS ORDERED: ASPIRIN 325 MG TABLET, ENT COATED PO SCH (10:00)
[2019-07-12] MEDS: ATENOLOL 50 MG TABLET PO SCH (10:58)
[2019-07-12] MEDS: LISINOPRIL 10 MG TABLET PO SCH (10:58)
[2019-07-12] MEDS: FAMOTIDINE 20 MG TABLET PO SCH ×2 (10:58→21:12)
[2019-07-12] MEDS: CITALOPRAM HYDROBROMIDE 20 MG TABLET PO SCH (10:58)
[2019-07-12] MEDS: CLOPIDOGREL BISULFATE 75 MG TABLET PO SCH (10:58)
[2019-07-12] MEDS: DOCUSATE SODIUM 100 MG CAPSULE PO SCH (10:59)
[2019-07-12] MEDS: HYDRALAZINE HCL INJ/PF 20 MG/1 ML SDV IV PRN (12:09)
--- NOTE | 2019-07-12 16:33 | XCELERA REPORT ---
[address] [address] Transthoracic Echocardiogram Report Name: ASHISH SHRESTHA Age: 68 yrs Gender: Male : 1950 Patient Status: Inpatient Patient Location: [address] [place] [address] Study Date: 07/12/2019 11:04 AM Height: 72 in Weight: 219 lb BSA: 2.2 m2 Procedure: A two-dimensional transthoracic echocardiogram with color flow and Doppler was performed. The study was technically limited with all images being suboptimal in quality. Reason For Study: cva History: CVA. Ordering Physician: LIBORIO RAY Performed By: Roxana Farr Interpretation Summary There is no obvious cardiac source of embolus noted on this transthoracic echocardiogram. Follow-up with a CLIFF is suggested if cardiac source is still suspected. The left ventricle is normal in size. There is mild concentric left ventricular hypertrophy. LV EF is 70% Left ventricular systolic function is normal. The left ventricular wall motion is normal. There is no thrombus. Cannot assess ASD ,VSD ,or PFO. The right atrium is normal. Borderline left atrial enlargement. There is no evidence of mitral valve prolapse. There is no vegetation seen on the mitral valve. There is no mitral valve stenosis. There is a trace amount of mitral regurgitation There is no aortic valvular vegetation. There is no aortic valve stenosis There is no LVOT obstruction. No aortic regurgitation is present. There is no tricuspid stenosis. There is mild pulmonary hypertension by echo RVSP is 37 to 42 mm of Hg , with RA mean of 5 to 10. There is no pulmonic valvular stenosis. There is no pulmonic valvular regurgitation. The aortic root is normal size. The inferior vena cava appeared normal and decreased > 50% with respiration (RAP 5-10 mmHg) There is no pericardial effusion. There is no obvious cardiac source of embolus noted on this transthoracic echocardiogram. Follow-up with a CLIFF is suggested if cardiac source is still suspected MMode/2D Measurements & Calculations RVDd: 3.5 cm LVIDd: 5.2 cm FS: 41.4 % Ao root diam: 3.1 cm IVSd: 1.2 cm LVIDs: 3.0 cm EDV(Teich): 126.9 ml Ao root area: 7.7 cm2 LVPWd: 1.1 cm ESV(Teich): 35.5 ml LA dimension: 4.1 cm EF(Teich): 72.0 % Doppler Measurements & Calculations MV E max bernardino: MV P1/2t max bernardino: Ao V2 max: LV V1 max P.8 cm/sec 92.8 cm/sec 158.1 cm/sec 6.7 mmHg MV A max bernardino: MV P1/2t: 62.6 msec Ao max PG: LV V1 max: 70.1 cm/sec MVA(P1/2t): 3.5 cm2 10.0 mmHg 129.3 cm/sec MV E/A: 1.4 MV dec slope: 434.3 cm/sec2 MV dec time: 0.21 sec PA V2 max: TR max bernardino: MV P1/2t-pr_phl: 83.9 cm/sec 283.7 cm/sec 62.6 msec PA max PG: TR max P.2 mmHg 2.8 mmHg Left Ventricle The left ventricle is normal in size. There is mild concentric left ventricular hypertrophy. LV EF is 70%. Left ventricular systolic function is normal. Doppler measurements suggest normal left ventricular diastolic function. The left ventricular wall motion is normal. There is no thrombus. Cannot assess ASD ,VSD ,or PFO. Right Ventricle The right ventricle is normal in size and function. Atria The right atrium is normal. Borderline left atrial enlargement. Mitral Valve There is no evidence of mitral valve prolapse. There is no vegetation seen on the mitral valve. There is no mitral valve stenosis. There is a trace amount of mitral regurgitation. Aortic Valve There is no aortic valvular vegetation. There is no aortic valve stenosis. There is no LVOT obstruction. No aortic regurgitation is present. Tricuspid Valve There is no tricuspid stenosis. There is a trace amount of tricuspid regurgitation. There is mild pulmonary hypertension by echo. RVSP is 37 to 42 mm of Hg , with RA mean of 5 to 10. Pulmonic Valve There is no pulmonic valvular stenosis. There is no pulmonic valvular regurgitation. Great Vessels The aortic root is normal size. The inferior vena cava appeared normal and decreased > 50% with respiration (RAP 5-10 mmHg). Effusions There is no pericardial effusion. : LIBORIO RAY Lakshmi
[2019-07-12] MEDS ORDERED: SIMVASTATIN 10 MG TABLET PO SCH (22:00)
[2019-07-13] MEDS: INSULIN LISPRO 100 UNIT/ML 3 ML VIAL SUBCUT SCH (08:05)
[2019-07-13] MEDS: METFORMIN HCL 500 MG TABLET PO SCH (08:38)
[2019-07-13 08:39] VITALS: BP 141/88
[2019-07-13] MEDS: CITALOPRAM HYDROBROMIDE 20 MG TABLET PO SCH (10:29)
[2019-07-13] MEDS: DOCUSATE SODIUM 100 MG CAPSULE PO SCH (10:29)
[2019-07-13] MEDS: ATENOLOL 50 MG TABLET PO SCH (10:29)
[2019-07-13] MEDS: LISINOPRIL 10 MG TABLET PO SCH (10:29)
[2019-07-13] MEDS: FAMOTIDINE 20 MG TABLET PO SCH (10:31)
--- NOTE | 2019-07-13 11:20 | RADIOLOGY REPORT (SQ) ---
EXAM DESCRIPTION: CAROTID DOPPLER COMPLETED DATE/TIME: 07/12/2019 12:02 pm REASON FOR STUDY: cva COMPARISON: None. TECHNIQUE: Grayscale ultrasound, Doppler velocity and spectra, and color Doppler images acquired of the extra-cranial carotid and vertebral arteries. Images stored on PACS. LIMITATIONS: None. FINDINGS: RIGHT CAROTID CCA Velocities: Within normal limits. ICA Velocities Peak systolic 0.72 m/s. End diastolic 0.95 m/s. Proximal ICA/CCA peak systolic ratio 1.1. Spectra normal. No significant plaque. LEFT CAROTID CCA Velocities: Within normal limits. ICA Velocities Peak systolic 0.80 m/s. End diastolic 0.22 m/s. Proximal ICA/CCA peak systolic ratio 1.0. Spectra normal. No significant plaque. VERTEBRAL ARTERIES: Antegrade flow. Normal waveforms. SUBCLAVIAN ARTERIES: Not imaged. OTHER: No other significant finding. IMPRESSION: NO HEMODYNAMICALLY SIGNIFICANT STENOSIS. COMMENT: Quality ID #[id number]: Velocity criteria are extrapolated from the diameter data as defined by t he Society of Radiologists in Ultrasound Consensus Conference. Radiology 2003: 229; 340-346. TECHNICAL DOCUMENTATION: JOB ID: [id number] [employer]- All Rights Reserved Reading location - IP/workstation name: [email or web address]
--- NOTE | 2019-07-13 12:44 | PDOC DISCHARGE SUMMARY ---
Impression - Admit/DC Date/PCP Admission Date/Primary Care Provider: 07/11/19 10:59 DOROTHEA LEMUS MD Discharge Date: 07/13/19 - Discharge Diagnosis (1) Tobacco abuse Is this a current diagnosis for this admission?: Yes (2) TIA (transient ischemic attack) Is this a current diagnosis for this admission?: Yes (3) Diabetes mellitus Is this a current diagnosis for this admission?: Yes (4) Hypertension Is this a current diagnosis for this admission?: Yes - Assessment Summary: Will admit patient for further studies such as carotid Dopplers MRI of the brain. We will add Plavix to patient's regimen. We will control patient's hypertension try to maintain systolic around 160 and diastolic around 90 07/13/[address] head scan came back normal sign of hemorrhage or infarct, liver MRI scan of the brain did show a small punctate vertical infarct along a portion of the right precentral gyrus. No mass-effect. Otherwise just chronic ischemic changes. Once the MRI scan report was identified the aspirin, prophylactic Lovenox, and the Plavix was discontinued. His blood pressure was elevated from time to time and the hydralazine was given on a as needed basis for systolic greater than 160 or diastolic greater than 90. Patient's numbness and very mild weakness of the left upper extremity has resolved at the time of discharge. Patient's very mild weakness of the left side of his face has also cleared 90%. Nasolabial fold canal be seen and identified, although the deficit has not resolved completely. Patient was told at discharge that he needs to get a blood pressure cuff and check his blood pressures frequently record the date and time. Patient was told to continue his blood pressure medicine his cholesterol medicine. He was also told he needs to see his primary care provider on Wednesday or Wednesday. Patient was told that he will need a neurology appointment as an outpatient. He was told that he needs another MRI scan of the brain to compare to yesterday's study, to be sure the hemorrhage is resolving. Carotid Dopplers were done which were normal showing no stenosis, cardiogram was also normal. All of this information was discussed with the patient and his daughter in the room. Patient's vital signs when he came into the emergency room his blood pressure is elevated 202/102, 194/102 The following day as we had his pressures down to 140/96, 139/78 Go back up to 204/91 and at the time of discharge blood pressures are approximately 156/87 Patient is only taking Prinivil 10 mg daily and this could be increased to 20 mg daily Other medicine includes Tenormin 50 mg a day metformin thousand milligrams twice daily Celexa 40 mg daily and lovastatin 20 mg daily I told patient and his daughter that his hemorrhagic infarct was more than likely on the basis of hypertension and this needed to be managed closely. So that the neurologist that he sees will advise him as to whether or not he should resume aspirin or start on Plavix once the intracranial hemorrhage has resolved. He is medically stable for discharge - Additional Information Resuscitation Status: Do Not Intubate Discharge Diet: Diabetic Discharge Activity: Balance Activity w/Rest, No Lifting Over 10 Pounds, Walk Frequently Referrals: DOROTHEA LEMUS MD [Primary Care Provider] - 07/25/19 1:15 pm Home Medications: Citalopram Hydrobromide [Celexa 40 mg Tablet] 40 mg PO DAILY 04/03/17 Atenolol [Tenormin 50 mg Tablet] 50 mg PO DAILY 07/11/19 Lisinopril [Prinivil 10 mg Tablet] 10 mg PO DAILY 07/11/19 Lorazepam 0.5 mg PO BIDP PRN 07/11/19 Lovastatin [Altoprev] 20 mg PO QHS 07/11/19 Metformin HCl [Metformin HCl ER] 1,000 mg PO BIDBS 07/11/19 History of Present Illiness History of Present Illness: ASHISH SHRESTHA is a 68 year old male states last night he was that he had a "dry cough." Patient states that this was very unusual for him. Woke up this morning he had weakness of his left hand and drooping on the left side of his face. Patient states that both the symptoms are getting better.. She denies ever having a previous CVA or DE. Patient states that he has been taking 1 adult aspirin daily for many years now as directed by his primary care provider. Patient denies any difficulty with his speech patient denies any difficulty swallowing he denies headache he denies any other symptoms on the right side of his body. Patient denies any symptoms with his left lower extremity. Physician discussed this with the neurologist at [facility]. Patient will be admitted for further work-up. Physical Exam Vital Signs: Temp Pulse Resp BP Pulse Ox 98.1 F 75 16 141/88 H 97 07/13/19 11:34 07/13/19 11:34 07/13/19 11:34 07/13/19 11:34 07/13/19 11:34 Intake & Output 07/12/19 07/13/19 07/14/19 06:59 06:59 06:59 Intake Total 500 350 Balance 500 350 Weight 99.5 kg 98.1 kg Results Laboratory Results: WBC 9.3 10^3/uL (4.0-10.5) 07/12/19 07:59 RBC 4.61 10^6/uL (4.35-5.55) 07/12/19 07:59 Hgb 14.8 g/dL (13.5-17.0) 07/12/19 07:59 Hct 43.3 % (37.9-51.0) 07/12/19 07:59 MCV 94 fl (80-97) 07/12/19 07:59 MCH 32.0 pg (27.0-33.4) 07/12/19 07:59 MCHC 34.1 g/dL (32.0-36.0) 07/12/19 07:59 RDW 13.6 % (11.5-14.0) 07/12/19 07:59 Plt Count 183 10^3/uL (150-450) 07/12/19 07:59 Lymph % (Auto) 26.4 % (13-45) 07/12/19 07:59 [place] % (Auto) 9.7 % (3-13) 07/12/19 07:59 Eos % (Auto) 0.5 % (0-6) 07/12/19 07:59 Baso % (Auto) 0.5 % (0-2) 07/12/19 07:59 Absolute Neuts (auto) 5.9 10^3/uL (1.7-8.2) 07/12/19 07:59 Absolute Lymphs (auto) 2.5 10^3/uL (0.5-4.7) 07/12/19 07:59 Absolute Monos (auto) 0.9 10^3/uL (0.1-1.4) 07/12/19 07:59 Absolute Eos (auto) 0.0 10^3/uL (0.0-0.6) 07/12/19 07:59 Absolute Basos (auto) 0.0 10^3/uL (0.0-0.2) 07/12/19 07:59 Seg Neutrophils % 62.9 % (42-78) 07/12/19 07:59 Platelet Estimate Cancelled 07/12/19 05:43 PT 12.6 SEC (11.4-15.4) 07/11/19 08:34 INR 0.94 07/11/19 08:34 APTT 32.0 SEC (23.5-35.8) 07/11/19 08:34 Sodium 137.3 mmol/L (137-145) 07/12/19 05:43 Potassium 4.4 mmol/L (3.6-5.0) 07/12/19 05:43 Chloride 104 mmol/L (98-107) 07/12/19 05:43 Carbon Dioxide 22 mmol/L (22-30) 07/12/19 05:43 Anion Gap 11 (5-19) 07/12/19 05:43 BUN 15 mg/dL (7-20) 07/12/19 05:43 Creatinine 0.80 mg/dL (0.52-1.25) 07/12/19 05:43 Est GFR ( Amer) > 60 (>60) 07/12/19 05:43 Est GFR (MDRD) Non-Af > 60 (>60) 07/12/19 05:43 Glucose 135 mg/dL (75-110) H 07/12/19 05:43 POC Glucose 148 mg/dL (70-110) H 07/13/19 07:47 Calcium 9.3 mg/dL (8.4-10.2) 07/12/19 05:43 Magnesium 2.3 mg/dL (1.6-2.3) 07/12/19 05:43 Total Bilirubin 0.4 mg/dL (0.2-1.3) 07/11/19 08:34 Direct Bilirubin 0.2 mg/dL (0.0-0.4) 07/11/19 08:34 Neonat Total Bilirubin Not Reportable 07/11/19 08:34 Neonat Direct Bilirubin Not Reportable 07/11/19 08:34 Neonat Indirect Bili Not Reportable 07/11/19 08:34 AST 22 U/L (17-59) 07/11/19 08:34 ALT 27 U/L (<50) 07/11/19 08:34 Alkaline Phosphatase 78 U/L (38-126) 07/11/19 08:34 Troponin I < 0.012 ng/mL 07/11/19 08:34 Total Protein 7.6 g/dL (6.3-8.2) 07/11/19 08:34 Albumin 4.3 g/dL (3.5-5.0) 07/11/19 08:34 Triglycerides 102 mg/dL (<150) 07/12/19 05:43 Cholesterol 126.76 mg/dL (0-200) 07/12/19 05:43 LDL Cholesterol Direct 74 mg/dL (<100) 07/12/19 05:43 VLDL Cholesterol 20.0 mg/dL (10-31) 07/12/19 05:43 HDL Cholesterol 40 mg/dL (>40) 07/12/19 05:43 TSH 2.48 uIU/mL (0.47-4.68) 07/11/19 08:34 Slides for Path Review Cancelled 07/12/19 05:43 07/11/19 08:34 Troponin I < 0.012 Impressions: Head MRI 07/11/19 00:00 IMPRESSION: 1. 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 Mild chronic ischemic changes Chest X-Ray 07/11/19 08:18 IMPRESSION: NO ACUTE RADIOGRAPHIC FINDING IN THE CHEST. Head CT 07/11/19 08:18 IMPRESSION: NORMAL BRAIN CT WITHOUT CONTRAST. EVIDENCE OF ACUTE STROKE: NO. Carotid Doppler Study 07/12/19 00:00 IMPRESSION: NO HEMODYNAMICALLY SIGNIFICANT STENOSIS. Stroke Is this a Stroke Patient?: Yes Stroke Pt being discharged on Anti-thrombolytic therapy?: No Reason(s) for not prescribing Anti-thrombolytic therapy:: Medical Contraindication Stroke Pt being discharged on Anti-coagulation therapy?: No Reason(s) for not prescribing Anti-coagulation therapy:: Medical Contraindication Stroke Pt being discharged on Statins?: Yes Acute Heart Failure - Is this a Heart Failure Patient?: No
== END 2019-07-13 11:50 | disposition home or self-care (01) ==
LOC: ER 08:15 → EH 10:59 → INTOOBSV 10:59 → EH 12:04 → 5TH 07-12 11:09 → 3N 07-12 13:41
PROVIDERS: ADMIT Hospitalist; ATTEND Hospitalist
DX: G45.9 Transient cerebral ischemic attack, unspecified (principal); R29.810 Facial weakness; I10 Essential (primary) hypertension; E11.9 Type 2 diabetes mellitus without complications; R05 Cough; F17.200 Nicotine dependence, unspecified, uncomplicated; R29.701 NIHSS score 1; Z79.899 Other long term (current) drug therapy; Z79.82 Long term (current) use of aspirin; Z82.49 Family history of ischemic heart disease and other diseases of the circulatory system
CPT/HCPCS: 93005; 99285; 36415 ×2; 82962 ×3; 83735; 84443; 85025 ×2; 85610; 85730; 80048; 80053; 84484; 80061; 93306; 93880; 70551; 71045; 70450; 93010; G0378 ×4; A9270 ×22; J0360 ×2; J1650; J1815; S0119

== ENCOUNTER → 2019-07-22 | Outpatient (CLI) | payer MEDICARE ==
--- NOTE | 2019-07-22 12:10 | RADIOLOGY REPORT (SQ) ---
EXAM DESCRIPTION: MRI HEAD WITHOUT COMPLETED DATE/TIME: 07/22/2019 11:48 am REASON FOR STUDY: I61.9 FOCAL HEMORRHAGE I61.9 NONTRAUMATIC INTRACEREBRAL HEMORRHAGE, UNSPECIFIED COMPARISON: CT brain 07/11/2019 MRI brain 07/11/2019 TECHNIQUE: Multiplanar imaging includes non-contrasted T1, T2, FLAIR, and diffusion with ADC map seq uences. Images stored on PACS. LIMITATIONS: No IV contrast FINDINGS: Along the right precentral gyrus over the frontal convexity, a cortical focus of decreased T2 and T1 signal measuring about 6 x 3 mm in size is present. This is surrounded by a halo of incre ased FLAIR/T2 signal. On the current exam there is no associated significant altered diffusion signa l. Previous exam previous exam 07/11/2019 demonstrated a halo of restricted diffusion along its perip rosa worrisome for ischemic change. Currently, this finding demonstrates no mass effect. No increased T1 weighted signal to indicate met hemoglobin or fat content. No large feeding or draining vessels. This finding could represent a small pial AVM or dystrophic cortex/ganglioglioma. So far, no IV cont rast for MRI has been given during workup. Recommend follow-up postcontrast T1 weighted imaging thro ugh this area to include 3D volume acquisition, as well as a [place] MRA with [id number] extended to cover this area. Remainder of the cerebral hemispheres are otherwise unremarkable CSF SPACES: Normal in size and contour. No hemorrhage. CEREBRUM: As above POSTERIOR FOSSA: No signal alteration. No hemorrhage. No edema, masses or mass effect. Internal tanya tory canals, cerebello-pontine angles, mastoids normal. DIFFUSION IMAGING: Negative for acute or sub-acute infarction. ORBITS: No masses. Globes normal. PARANASAL SINUSES: No fluid levels. Mucosa normal. OTHER: No other significant finding. IMPRESSION: 6 x 3 mm right posterior frontal cortical abnormality along the precentral gyrus region. This may represent a tiny focus of dysplastic brain or low-grade tumor. Pial surface AVM is possib le. Follow-up postcontrast imaging is recommended with [place] MRA extended field of view t o cover this area. EVIDENCE OF ACUTE STROKE: NO. TECHNICAL DOCUMENTATION: JOB ID: [id number] [employer]- All Rights Reserved Reading location - IP/workstation name: [email or web address]
== END ==
LOC: RAD 11:06
PROVIDERS: ATTEND Internal Medicine
DX: I61.9 Nontraumatic intracerebral hemorrhage, unspecified (principal)
CPT/HCPCS: 70551

== ENCOUNTER → 2019-07-27 | Outpatient (CLI) | payer MEDICARE ==
--- NOTE | 2019-07-28 12:35 | RADIOLOGY REPORT (SQ) ---
EXAM DESCRIPTION: MRA HEAD WITHOUT COMPLETED DATE/TIME: 07/27/2019 9:11 pm REASON FOR STUDY: R93.89 ABNORMAL FINDINGS ON DX IMAGING OF OTH BODY STRUCTURES R93.89 ABNORMAL FIN DINGS ON DX IMAGING OF OTH BODY STRUCTURE Q27.30 ARTERIOVENOUS MALFORMATION, SITE UNSPECIFIED I63.9 CEREBRAL INFARCTION, UNSPECIFIED COMPARISON: MRI head 07/22/2019 TECHNIQUE: Axial 3-D [id number] acquisition imaging performed through the brain in the area of t he [place]. Images reformatted using 3-D MIPS. LIMITATIONS: None. FINDINGS: SOURCE IMAGES: No unexpected findings on source images. No large masses. 3-D MIP: No aneurysm. No occlusions. No significant stenosis. OTHER: No other significant finding. IMPRESSION: NORMAL MRA OF THE [place]. TECHNICAL DOCUMENTATION: JOB ID: [id number] [employer]- All Rights Reserved Reading location - IP/workstation name: [email or web address]
--- NOTE | 2019-07-28 17:18 | RADIOLOGY REPORT (SQ) ---
EXAM DESCRIPTION: MRI HEAD COMBO COMPLETED DATE/TIME: 07/27/2019 9:11 pm REASON FOR STUDY: R93.89 ABNORMAL FINDINGS ON DX IMAGING OF OTH BODY STRUCTURES R93.89 ABNORMAL FIN DINGS ON DX IMAGING OF OTH BODY STRUCTURE Q27.30 ARTERIOVENOUS MALFORMATION, SITE UNSPECIFIED I63.9 CEREBRAL INFARCTION, UNSPECIFIED COMPARISON: MRA exam brain 07/27/2019 MRI brain 07/22/2019, 07/11/2019 CT brain 07/11/2019 TECHNIQUE: Multiplanar imaging includes postgadolinium contrast T1 sequences. Images stored on PACS. CONTRAST TYPE AND DOSE: 20 mL Dotarem. RENAL FUNCTION: Not indicated. ACR Type II contrast agent associated with few, if any, unconfounded cases of NSF LIMITATIONS: None. FINDINGS: Along the right precentral gyrus, a cortical bandlike area of enhancement is present measu ring 2 cm craniocaudad by 4 mm in greatest transverse diameter by 10 mm AP. The area of contrast enh ancement along the cortex correlates with increased FLAIR/ T2 signal on MR 07/22/2019. No mass effect . No large feeding or draining vessels. This may represent a subacute cortical infarct. Tumor is c onsidered less likely. Infectious etiologies are considered unlikely. Consider follow-up brain MRI in 3 months without and with to document evolution of this probable infarct. IMPRESSION: Bandlike area of cortical enhancement right precentral gyrus in the area of signal abnor mality seen on prior MRI brain 07/11/2019 and 07/22/2019. This most likely represents a nonhemorrhagic subacute infarct. Consider follow-up three-month MRI brain without with contrast to evaluate evolution of the infarct. EVIDENCE OF ACUTE STROKE: NO. TECHNICAL DOCUMENTATION: JOB ID: [id number]- All Rights Reserved Reading location - IP/workstation name: [email or web address]
== END ==
LOC: RAD 18:00
PROVIDERS: ATTEND Internal Medicine
DX: I63.9 Cerebral infarction, unspecified (principal); R93.89 Abnormal findings on diagnostic imaging of other specified body structures; Q27.30 Arteriovenous malformation, site unspecified
CPT/HCPCS: 70553; 70544; A9576